=== PATIENT | male | born 1985 | race Caucasian/White ===

== ENCOUNTER 2017-04-28 21:11 | Inpatient (IN) | payer MEDICAID ==
[~2017-04-28] VITALS: Ht 170.2 cm; Wt 80.8 kg
[2017-04-28 22:11] LABS: BASOPHIL % 0.2 % (0-2); PLATELET COUNT 312 x10^3mcL (130-400); RED CELL DISTRIBUTION WIDTH 12.5 % (11.5-14.5)
[2017-04-28 22:18] LABS: CALCIUM 8.8 mg/dL (8.5-10.1); CARBON DIOXIDE 30.5 mmol/L (21-32); CHLORIDE SERUM 102 mmol/L (98-107); CREATININE SERUM 0.8 mg/dL (0.7-1.3); GFR1 > 60 mL/min; GLUCOSE SERUM 110 mg/dL (74-106); POTASSIUM SERUM 3.6 mmol/L (3.5-5.1); SODIUM SERUM 138 mmol/L (136-145)
[2017-04-28 22:22] LABS: ALBUMIN 3.6 g/dL (3.4-5.0); ALKALINE PHOSPHATASE 98 U/L (46-116); ALT/SGPT 40 U/L (16-63); AST/SGOT 19 U/L (15-37); BILIRUBIN TOTAL 0.6 mg/dL (0.20-1.00); LIPASE 160 IU/L (73-393); TOTAL PROTEIN, SERUM 7.4 g/dL (6.4-8.2)
[2017-04-28] MEDS ORDERED: EPZICOM1 TAB (23:22)
[2017-04-29] VITALS (7 sets, daily range): BP systolic 95–119; BP diastolic 51–71; Ht 170.2 cm; Wt 80.8 kg
[2017-04-29 00:23] LABS: CHOLESTEROL/HDL RATIO 4.5; MAGNESIUM 2.2 mg/dL (1.8-2.4); PHOSPHOROUS 3.5 mg/dL (2.5-4.9); T3 TOTAL 1.39 ng/mL
[2017-04-29 00:32] LABS: FREE T4 1.07 ng/dL (0.76-1.46); FREE THYROXINE INDEX 3.2 ug/dL (1.4-4.5)
[2017-04-29 00:52] LABS: microscopic required? NO
[2017-04-29 01:24] LABS: UA SPECIFIC GRAVITY 1.015 (1.005-1.035); urine erythrocyte NEGATIVE (NEGATIVE)
[2017-04-29 01:25] LABS: AMPHETAMINE QUAL UR NONE DETECTED (NEG <=1000)
[2017-04-29 06:07] LABS: CALCIUM 8.4 mg/dL (8.5-10.1); CARBON DIOXIDE 30.2 mmol/L (21-32); CHLORIDE SERUM 105 mmol/L (98-107); CREATININE SERUM 0.8 mg/dL (0.7-1.3); GFR1 > 60 mL/min; GLUCOSE SERUM 113 mg/dL (74-106); POTASSIUM SERUM 3.5 mmol/L (3.5-5.1); SODIUM SERUM 140 mmol/L (136-145)
[2017-04-29 06:16] LABS: BASOPHIL % 0.1 % (0-2); PLATELET COUNT 302 x10^3mcL (130-400); RED CELL DISTRIBUTION WIDTH 12.9 % (11.5-14.5)
[2017-04-30 05:40] VITALS: BP 98/52
[2017-04-30 06:37] LABS: BASOPHIL % 0.4 % (0-2); PLATELET COUNT 267 x10^3mcL (130-400)
[2017-04-30 09:11] VITALS: BP 103/60
[2017-04-30 13:49] VITALS: BP 101/60
[2017-04-30 16:57] VITALS: BP 111/70
[2017-04-30 21:27] VITALS: BP 106/55
[2017-05-01 05:36] VITALS: BP 95/55
[2017-05-01 06:25] LABS: BASOPHIL % 0.8 % (0-2); PLATELET COUNT 257 x10^3mcL (130-400); RED CELL DISTRIBUTION WIDTH 13.1 % (11.5-14.5)
[2017-05-01 10:00] VITALS: BP 107/62
[2017-05-01] MEDS ORDERED: KEFLEX500 M1 PO (12:08)
[2017-05-01] MEDS ORDERED: LAC PO (12:09)
[2017-05-01] MEDS ORDERED: NORCO1 TA2 PO (12:10)
[2017-05-01] MEDS ORDERED: COLACE100 MG PO (12:22)
[2017-05-01 13:01] VITALS: BP 107/62
[2017-05-01 13:39] VITALS: BP 102/65
== END 2017-05-01 16:14 | disposition home or self-care (01) | DRG 225 ==
LOC: ED 21:11 → DU 23:24 → MU 23:24 → DU 04-29 01:14 → MU 04-29 17:34
PROVIDERS: Emergency Medicine; Surgery; ADMIT Family Medicine
PROC: 0DTJ4ZZ Resection of Appendix, Percutaneous Endoscopic Approach (ICD-10-PCS; principal; 2017-04-29 09:00)
DX: K35.3 Acute appendicitis with localized peritonitis (principal); N20.1 Calculus of ureter; N13.4 Hydroureter; N28.1 Cyst of kidney, acquired; E78.5 Hyperlipidemia, unspecified; E78.1 Pure hyperglyceridemia; Z68.27 Body mass index [BMI] 27.0-27.9, adult; Z72.0 Tobacco use
CPT/HCPCS: 83880; 84439; 90658; 94150; J0330; J0690; J0696; J1170; J1885; J1956; J2250; J2405; J2704; J3010; J3490; J7030; J7120; Q0092

== ENCOUNTER 2017-05-11 13:37 | Emergency (ER) | payer MEDICAID ==
[~2017-05-11] VITALS: Ht 175.3 cm; Wt 77.1 kg
[~2017-05-11 13:37] MED LIST: COLACE100 MG PO; EPZICOM1 TAB; KEFLEX500 M1 PO; LAC PO; NORCO1 TA2 PO
[2017-05-11 13:43] VITALS: Ht 175.3 cm; Wt 77.1 kg
[2017-05-11 15:03] LABS: CALCIUM 8.6 mg/dL (8.5-10.1); CARBON DIOXIDE 27.6 mmol/L (21-32); CHLORIDE SERUM 102 mmol/L (98-107); CREATININE SERUM 1.1 mg/dL (0.7-1.3); GFR1 > 60 mL/min; GLUCOSE SERUM 93 mg/dL (74-106); POTASSIUM SERUM 3.6 mmol/L (3.5-5.1); SODIUM SERUM 138 mmol/L (136-145)
[2017-05-11 15:05] LABS: BASOPHIL % 0.4 % (0-2); PLATELET COUNT 245 x10^3mcL (130-400); RED CELL DISTRIBUTION WIDTH 12.9 % (11.5-14.5)
[2017-05-11 15:20] LABS: ALBUMIN 3.7 g/dL (3.4-5.0); ALKALINE PHOSPHATASE 97 U/L (46-116); ALT/SGPT 74 U/L (16-63); AST/SGOT 27 U/L (15-37); BILIRUBIN TOTAL 0.3 mg/dL (0.20-1.00); TOTAL PROTEIN, SERUM 7.9 g/dL (6.4-8.2)
[2017-05-11 15:21] LABS: CK-MB < 0.5 ng/mL (0-3.6); CREATINE KINASE 33 U/L (39-308)
[2017-05-11 15:57] LABS: microscopic required? YES; urine erythrocyte TRACE (NEGATIVE)
[2017-05-11 17:17] VITALS: BP 111/53
== END 2017-05-11 17:17 | disposition home or self-care (01) ==
LOC: ED 13:37
PROVIDERS: Emergency Medicine
DX: K52.9 Noninfective gastroenteritis and colitis, unspecified (principal); R10.32 Left lower quadrant pain
CPT/HCPCS: 83880; J1885; J7030; Q0092; Q9967

== ENCOUNTER 2018-06-30 20:24 | Emergency (ER) | payer SELFPAY ==
[~2018-06-30] VITALS: Ht 165.1 cm; Wt 87.7 kg
[2018-06-30 21:06] VITALS: BP 120/69; Ht 165.1 cm; Wt 87.7 kg
== END 2018-07-01 00:29 | disposition home or self-care (01) ==
LOC: ED 20:24
DX: S05.02XA Injury of conjunctiva and corneal abrasion without foreign body, left eye, initial encounter (principal); Z90.89 Acquired absence of other organs; W22.8XXA Striking against or struck by other objects, initial encounter; Y93.89 Activity, other specified; Y92.89 Other specified places as the place of occurrence of the external cause; Y99.8 Other external cause status
CPT/HCPCS: 90715